=== PATIENT | female | born 1970 | race Caucasian/White ===

== ENCOUNTER 2019-06-28 20:23 | Emergency (ER) | payer BC, OTHER ==
[2019-06-28 20:34] VITALS: BP 136/85; PULSE 100
--- NOTE | 2019-06-28 21:07 | EDM.PDOC ---
ED HPI GENERAL MEDICAL PROBLEM - General Chief Complaint: Lower Extremity Injury/Pain Stated Complaint: MAY HAVE BLOOD CLOT IN BACK OF LEG Time Seen by Provider: 06/28/19 20:50 Source of Information: Reports: Patient, RN History Limitations: Reports: No Limitations - History of Present Illness INITIAL COMMENTS - FREE TEXT/NARRATIVE: 48 yo female had surgery on her L achilles about 5 d ago in the [facility]. Today has pain in the L calf that radiates up her leg. No swelling or increased warmth. No SOB or pleuritic chest pain. Called her ortho's office and was told to come and be seen to R/O DVT. Onset: Today Onset Date: 06/28/19 Duration: Hour(s):, Constant Location: Reports: Lower Extremity, Left Quality: Reports: Ache, Other (like a cramp) Severity: Moderate (no relief with OTC analgesia) Improves with: Reports: None Worsens with: Reports: Other (unknown) Context: Reports: Other (See HPI) Associated Symptoms: Reports: No Other Symptoms Treatments [employer]: Reports: Acetaminophen, NSAIDS Left Leg Pain Score (Numeric/FACES): 5 - Related Data Allergies Allergy/AdvReac Type Severity Reaction Status Date / Time adhesive tape Allergy Redness Verified 06/28/19 20:34 amoxicillin Allergy Rash Verified 08/18/15 19:45 meperidine HCl [From Demerol] Allergy Rash Verified 08/18/15 19:45 morphine Allergy Rash Verified 08/18/15 19:45 Sulfa (Sulfonamide Allergy Rash Verified 08/18/15 19:45 Antibiotics) Home Meds: Home Meds Acetaminophen [Tylenol Extra Strength] 1,000 mg PO DAILY 07/16/14 [History] Ibuprofen 800 mg PO DAILY 07/16/14 [History] Omeprazole 20 mg PO DAILY 07/16/14 [History] Evolocumab [Repatha Syringe] 140 mg SQ DAILY 06/28/19 [History] Hydroxychloroquine Sulfate [Plaquenil] 200 mg PO DAILY 06/28/19 [History] Past Medical History Cardiovascular History: Reports: High Cholesterol Genitourinary History: Reports: Renal Calculus [employer] History: Reports: Polycystic Ovaries, Musculoskeletal History: Reports: Back Pain, Chronic, Fracture Other Musculoskeletal History: [id number] fusion; tibfib fx, ulnar shortening Psychiatric History: Reports: Depression Other Psychiatric History: depression - Past Surgical History HEENT Surgical History: Reports: Adenoidectomy, Tonsillectomy Other Cardiovascular Surgeries/Procedures: angiogram done GI Surgical History: Reports: Cholecystectomy, Hernia, Abdominal Female Surgical History: Reports: Section, Hysterectomy, Oophorectomy Musculoskeletal Surgical History: Reports: Carpal Tunnel Social & Family History - Tobacco Use Smoking Status *Q: Never Smoker - Caffeine Use Caffeine Use: Reports: Coffee, Soda Caffeine Use Comment: mountain dew - Recreational Drug Use Recreational Drug Use: No Review of Systems - Review of Systems Review Of Systems: See Below Constitutional: Reports: No Symptoms Respiratory: Reports: No Symptoms Cardiovascular: Reports: No Symptoms Musculoskeletal: Reports: Leg Pain (L leg/calf) Skin: Reports: No Symptoms Neurological: Reports: No Symptoms ED EXAM, GENERAL - Physical Exam Exam: See Below Exam Limited By: No Limitations General Appearance: Alert, WD/WN, No Apparent Distress Respiratory/Chest: No Respiratory Distress, Lungs Clear, Normal Breath Sounds, No Accessory Muscle Use, Chest Non-Tender. No: Respiratory Distress Cardiovascular: Regular Rate, Rhythm, No Edema Extremities: Normal Inspection, No Pedal Edema, Other (short leg cast present on L leg). No: Pedal Edema, Increased Warmth, Redness Neurological: Alert, Oriented, CN II-XII Intact, Normal Cognition, No Motor/ Sensory Deficits Psychiatric: Normal Affect, Normal Mood Skin Exam: Warm, Dry, Intact, Normal Color, No Rash Course - Vital Signs Last Recorded V/S: Last Vital Signs Temp 35.9 C 06/28/19 20:36 Pulse 100 06/28/19 20:36 Resp 20 06/28/19 20:36 BP 136/85 06/28/19 20:36 Pulse Ox 99 06/28/19 20:36 - Orders/Labs/Meds Labs: Laboratory Tests 06/28/19 Range/Units 20:55 D-Dimer, Quantitative 339 (0.0-400.0) ng/mL Departure - Departure Time of Disposition: 21:23 Disposition: Home, Self-Care 01 Condition: Fair Clinical Impression: Left leg pain - Discharge Information *PRESCRIPTION DRUG MONITORING PROGRAM REVIEWED*: No *COPY OF PRESCRIPTION DRUG MONITORING REPORT IN PATIENT CARLIN: No Referrals: Elmer Kuo MD [Primary Care Provider] - Forms: ED Department Discharge Additional Instructions: Continue ibuprofen/acetaminophen as needed. Moist heat, massage and stretching may be helpful. Recheck as needed. Sepsis Event Note - Evaluation Sepsis Screening Result: No Definite Risk - Focused Exam Vital Signs: Vital Signs Temp Pulse Resp BP Pulse Ox 06/28/19 20:36 35.9 C 100 20 136/85 99 06/28/19 20:33 35.9 C 100 20 136/85 99 Date Exam was Performed: 06/28/19 Time Exam was Performed: 21:23
== END 2019-06-28 21:32 | disposition home or self-care (01) ==
LOC: JP.ED 20:23
DX: M79.605 Pain in left leg (principal); Z88.1 Allergy status to other antibiotic agents; Z91.048 Other nonmedicinal substance allergy status; Z88.5 Allergy status to narcotic agent; Z88.2 Allergy status to sulfonamides; Z88.8 Allergy status to other drugs, medicaments and biological substances; Z79.899 Other long term (current) drug therapy
CPT/HCPCS: 36415; 85379; 99283

== ENCOUNTER 2025-02-04 17:02 | Emergency (ER) | payer BC, OTHER ==
[2025-02-04 17:16] VITALS: BP 136/88; PULSE 96
== END 2025-02-04 18:05 | disposition home or self-care (01) ==
LOC: JP.ED 17:02
DX: T63.461A Toxic effect of venom of wasps, accidental (unintentional), initial encounter (principal); Z88.0 Allergy status to penicillin; Z88.2 Allergy status to sulfonamides; Z88.5 Allergy status to narcotic agent; Z88.8 Allergy status to other drugs, medicaments and biological substances; Z91.09 Other allergy status, other than to drugs and biological substances; Z79.899 Other long term (current) drug therapy; Z90.49 Acquired absence of other specified parts of digestive tract; Z90.710 Acquired absence of both cervix and uterus
CPT/HCPCS: 99282